=== PATIENT | female | born 1990 | race African-American/Black ===

== ENCOUNTER 2018-01-05 14:39 | Emergency (ER) | payer MEDICAID, OTHER ==
[~2018-01-05] VITALS: Ht 165.1 cm; Wt 61.2 kg
[~2018-01-05 14:39] MED LIST: AZITHROMYCIN250 MG ORAL; IBUPROFEN600 MG ORAL; NKM; ONDANSETRON ODT4 MG ORAL
[2018-01-05 14:58] VITALS: BP 101/75
[2018-01-05] MEDS ORDERED: HYDROcodone/Acetamin 10/325 tab ORAL ONE (15:15)
--- NOTE | 2018-01-05 16:27 | Emergency Room Report ---
History of Present Illness General Chief Complaint: Laceration Source: Medical Record Present Illness HPI 27-year-old female with no significant past medical history here complaining of 30 minutes pain in the left thumb after using a knife and shopping the tip of her left thumb. She presents with excess bleeding and pain in the left thumb. Denies numbness and tingling, pain radiation, has not taken any medication for pain. Denies chest pain shortness of breath palpitations and no other associated symptoms Allergies: Coded Allergies: BANANA (Verified Allergy, Severe, throat swelling, 12/23/12) Patient History Past Medical History: see triage record Past Surgical History: none Last Menstrual Period: 12/30/17 Now: No Immunizations: UTD Reviewed Nursing Documentation: PMH: Agreed; PSxH: Agreed Nursing Documentation-PMH Hx Cardiac Problems: No Hx Asthma: Yes Hx Cancer: No Hx Gastrointestinal Problems: No Hx Neurological Problems: No Review of Systems All Other Systems: negative except mentioned in HPI Physical Exam Vital Signs Date Time Temp Pulse Resp B/P (MAP) Pulse Ox O2 Delivery O2 Flow Rate FiO2 01/05/18 14:49 98.2 80 14 101/75 95 Room Air 98.2 Sp02 EP Interpretation: reviewed, normal General Appearance: normal inspection, no apparent distress, alert, GCS 15 Head: normocephalic Eyes: bilateral eye normal inspection, bilateral eye PERRL ENT: normal ENT inspection, hearing grossly normal Neck: normal inspection, supple Respiratory: normal inspection, lungs clear, no wheezing Cardiovascular #1: normal inspection, no murmur Gastrointestinal: normal inspection, soft Rectal: deferred Genitourinary: deferred Musculoskeletal: normal inspection Neurologic: normal inspection, alert, oriented x3 Psychiatric: normal inspection, judgement/insight normal, memory normal Skin: normal turgor, laceration - left thumb, Lymphatic: normal inspection, no adenopathy Medical Decision Making PA Attestation of diagnosis and treatment plans are reviewed and discussed with supervising physician Dr. Jeffery Diagnostic Impression: Primary Impression: Laceration ER Course 27-year-old female with no significant past medical history here complaining of 30 minutes pain in the left thumb after using a knife and shopping the tip of her left thumb. She presents with excess bleeding and pain in the left thumb. Denies numbness and tingling, pain radiation, has not taken any medication for pain. Denies chest pain shortness of breath palpitations and no other associated symptoms Ddx considered but are not limited to Laceration of left thumb, avulsion fracture Vital signs: are WNL, pt. is afebrile H&PE are most consistent with laceration left thumb ORDERS: left finger x-ray, irrigation and dressing bulky, Keflex, [place], naproxen ED INTERVENTIONS: norco x-ray of the left finger DISCHARGE: At this time pt. is stable for d/c to home. Will provide printed patient care instructions, and any necessary prescriptions. Care plan and follow up instructions have been discussed with the patient prior to discharge. follow with a primary care provider for referral to hand specialist and further assessment patient has been explained that it cannot be repaired as complete avulsion of the tip of the left thumb Other X-Ray Diagnostic Results Other X-Ray Diagnostic Results : X-Ray ordered: left finger # of Views/Limited Vs Complete: 2 View Indication: Swelling EP Interpretation: Yes PA Xray: Interpretation reviewed, by supervising MD, and agrees with findings. Interpretation: no dislocation, no fractures Impression: No acute disease Electronically Signed by: ac Hernández PA-C Last Vital Signs Date Time Temp Pulse Resp B/P (MAP) Pulse Ox O2 Delivery O2 Flow Rate FiO2 01/05/18 15:16 98.2 01/05/18 14:58 14 101/75 95 Room Air 01/05/18 14:49 80 Disposition: HOME, SELF-CARE Condition: Stable Scripts Naproxen* (NAPROXEN*) 500 Mg Tablet 500 MG ORAL TWICE A DAY, #30 TAB Prov: Ac Stewart 01/05/18 Cephalexin* (KEFLEX*) 500 Mg Capsule 500 MG ORAL EVERY 6 HOURS for 7 Days, #28 CAP 0 Refills Prov: Ac Stewart 01/05/18 Patient Instructions: Laceration Care, Adult Additional Instructions: take antibiotics as directed and follow-up with the primary care provider and also hand specialist avoid contamination of the affected area wound care and change of dressing every 48-72 hours as directed if fever chills retention emergency Ac Stewart Jan 05, 2018 16:27
[2018-01-05] MEDS ORDERED: NAPROXEN500 M2 ORAL (16:28)
[2018-01-05] MEDS ORDERED: CEPHALEXIN500 MG ORAL (16:28)
[2018-01-05] MEDS ORDERED: Surgicel 4in x 8in TOPIC ONE (16:30)
[2018-01-05 16:36] VITALS: BP 112/82
--- NOTE | 2018-01-06 14:37 | Diagnostic Imaging Report ---
Indication: Pain, laceration, trauma Technique: XRAY Fingers 2-3v L Comparison: None FINDINGS/IMPRESSION: Bony mineralization is within normal limits. There is no acute fracture or dislocation. There is soft tissue defect at the tip of the first digit consistent with given history of laceration; correlate with physical exam. No radiopaque foreign body identified.
== END 2018-01-05 16:36 | disposition home or self-care (01) ==
LOC: EMR 15:15
DX: S61.012A Laceration without foreign body of left thumb without damage to nail, initial encounter (principal); W26.0XXA Contact with knife, initial encounter; Y92.9 Unspecified place or not applicable; J45.909 Unspecified asthma, uncomplicated
CPT/HCPCS: 99283